=== PATIENT | male | born 1975 | race Hispanic/Latino ===

== ENCOUNTER 2018-06-22 19:08 | Emergency (ER) | payer SELFPAY ==
[2018-06-22 20:06] VITALS: BP 133/82; PULSE 88; RESP 20; TEMP 98; O2SAT 98
== END 2018-06-22 20:51 | disposition left against medical advice (07) ==
LOC: C.ER 19:08
DX: Z02.89 Encounter for other administrative examinations (principal); I10 Essential (primary) hypertension